=== PATIENT | female | born 1950 | race Caucasian/White ===

== ENCOUNTER 2019-07-31 17:50 | Emergency (ER) | payer MEDICARE, SELFPAY ==
[2019-07-31 17:55] VITALS: BP 139/79; PULSE 88; RESP 18; TEMP 36.7; O2SAT 97; BMI 32.9
--- NOTE | 2019-07-31 18:11 | W.ED.NAVMDI ---
HPI - Nausea/Vomiting/Diarrhea General: Chief complaint: Abdominal Pain Stated complaint: n/v/d, weakness, pain everywhere, fever Time Seen by Provider: 07/31/19 18:04 Source: patient Mode of arrival: ambulatory Limitations: no limitations History of Present Illness: HPI Narrative: Patient is a 68-year-old female who presents to ED today with a complaint of nausea, vomiting, diarrhea that began around 3-4 AM this morning. Patient tells me she felt extremely fatigued around 7 PM so she went to bed but woke up in the middle of the night having diarrhea. She reports approximately 15-20 very watery stools since onset. She states vomiting began this afternoon and has had 3-4 total episodes. She denies hematochezia, melanotic stools, or hematemesis. She does not report much abdominal pain at this time. She does report a headache. She does have a history of migraines however states this pain does not feel similar. Denies urinary symptoms. No fevers. PMH is significant for elevated triglycerides, hypothyroidism, migraine headaches. MD elicited complaint: nausea, vomiting, diarrhea and other (headache, weakness) Associated nausea: Yes Associated symtoms: Reports headache(s) and nausea; Denies change in vision, chest pain, dizziness, dysuria, fatigue, malaise, palpitations or syncope Review of Systems Const: Denies: fever(s), chills, body aches, change in appetite, change in weight, fatigue or malaise Eyes: Denies: change in vision or blurry vision Card: Denies: chest pain, palpitations, irregular heart rhythm, lightheadedness, syncope or dyspnea on exertion Resp: Denies: dyspnea, productive cough or pain on inspiration GI: Reports: nausea, vomiting and diarrhea; Denies: abdominal pain, hematemesis, coffee ground emesis, heartburn, pain on defecation, hematochezia, melena or white/light colored stool : Denies: flank pain, difficulty voiding, dysuria, urinary frequency, urinary urgency or urinary hesitancy Musc: Denies: neck pain, back pain or joint pain Skin/Breast: Denies: rash Neuro: Reports: headache(s); Denies: numbness in extremities, weakness in extremities, sensory changes, lack of coordination or dizziness PFSH ED PFSH: Social History Smoking and tobacco status: never smoked Physical Exam Const: COMMON NORMALS: no acute distress, average body habitus, patient oriented x3, no limitations, healthy appearing, alert and well nourished ORIENTATION/CONSCIOUSNESS: Yes oriented to person, Yes oriented to place and Yes oriented to time HENMT: COMMON NORMALS: normocephalic and atraumatic HEAD & SCALP: normal to inspection, normocephalic and atraumatic Resp: COMMON NORMALS: normal respiratory effort and clear to auscultation bilaterally AUSCULTATION: clear to auscultation bilaterally Cardio: COMMON NORMALS: regular rate and regular rhythm RATE: regular rate RHYTHM: regular rhythm GI: COMMON NORMALS: Normal to inspection, nondistended, normoactive bowel sounds present, Soft to palpation, No hepatosplenomegaly present and no masses AUSCULTATION: Yes normoactive bowel sounds PALPATION: Yes Soft to palpation, Yes Tenderness to palpation present (GI) (throughout abdomen) and Yes No hepatosplenomegaly present : COMMON NORMALS: Yes no CVA tenderness BLADDER/KIDNEY EXAM: Yes no CVA tenderness Back/Pelvis: COMMON NORMALS: no CVA tenderness Extremity: COMMON NORMALS: normal to inspection Neuro: LATOYA COMA SCALE: document GCS findings Latoya coma scale eye opening: Spontaneous Latoya coma scale verbal response: Orientated Latoya coma scale motor response: Obey commands Latoya coma scale total score: 15 COMMON NORMALS: patient oriented x3, CN's II-XII intact bilaterally, moves all extremities, no focal motor deficits and no sensory deficits noted SENSORIUM/ORIENTATION: Yes alert, Yes oriented to person, Yes oriented to place and Yes oriented to time Skin: COMMON NORMALS: no rashes or lesions noted GENERAL SKIN EXAM: no rashes or lesions noted Course Vital Signs: Vital signs: Vital Signs Temperature 98.1 F 07/31/19 17:55 Pulse Rate 88 07/31/19 19:31 Respiratory Rate 16 07/31/19 19:31 Blood Pressure 119/67 07/31/19 19:31 Pulse Oximetry 99 07/31/19 19:31 MDM - Nausea/Vomiting/Diarrhea MDM Narrative: Medical decision making narrative: pt feels much better here after meds/fluids; she has not had any episodes of vomiting or diarrhea-wasn't able to provide stool sample; labs are non-concerning; vitals stable; CT scan showing incidental finding of gastric wall thickening/narrowed lumen-patient made aware of these findingds and we will have case management set her up with general surgery for further evaluation; return to ED precautions given Lab Data: Labs: Lab Results 07/31/19 07/31/19 07/31/19 Range/Units 18:29 18:29 18:54 WBC 7.4 (4.0-10.0) 10^3/ uL RBC 4.83 (4.1-5.3) 10^6/u L Hgb 14.4 (11.5-15.3) g/dL Hct 45.7 (37.0-47.0) % MCV 94.6 (81-99) fL MCH 29.8 (28.0-34.0) pg MCHC 31.5 (30.0-36.0) g/dL RDW 14.2 (12.1-15.1) % Plt Count 312 (130-400) 10^3/c mm MPV 10.2 (7.4-10.4) fL Neut % (Auto) 76.4 % Lymph % (Auto) 15.5 % [place] % (Auto) 6.6 % Eos % (Auto) 0.5 % Baso % (Auto) 0.7 % Neut # (Auto) 5.7 (1.8-7.7) 10^3/u L Lymph # (Auto) 1.2 (0.8-4.8) 10^3/u L [place] # (Auto) 0.5 (0.2-0.9) 10^3/u L Eos # (Auto) 0.0 (0.0-0.8) 10^3/u L Baso # (Auto) 0.1 (0.0-0.1) 10^3/u L Nucleated RBC % (a uto) 0 % Nucleated RBCs # 0.0 /100WBC Sodium 138 (136-145) mmol/L Potassium 3.7 (3.5-5.1) mmol/L Chloride 105 (98-107) mmol/L Carbon Dioxide 18 L (22-29) mmol/L Anion Gap 18.7 (5-19) BUN 14 (8-23) mg/dL Creatinine 0.8 (0.5-0.9) mg/dL GFR Calculation 71.8 L (90-130) mL/min Glucose 124 H (65-115) mg/dL Calculated Osmolal ity 284 L (285-295) mOsm/k g Calcium 9.1 (8.5-10.5) mg/dL Total Bilirubin 0.4 (0.15-1.2) mg/dL AST 24 (0-32) U/L ALT 17 (0-33) U/L Alkaline Phosphata se 68 (35-105) IU/L Total Protein 7.2 (6.6-8.7) g/dL Albumin 4.3 (3.5-5.2) g/dL Globulin 2.9 (1.3-4.6) g/dL Lipase 45 (13-60) U/L Urine Color Yellow (Yellow) Urine Appearance Clear (CLEAR) Urine pH 5 (5-7) Ur Specific Gravit y 1.025 (1.005-1.030) Urine Protein Neg (Negative) Urine Glucose (UA) Norm (Normal) Urine Ketones Negative (Negative) Urine Blood Neg (Negative) Urine Nitrate Negative (Negative) Urine Bilirubin Neg (NEGATIVE) Urine Urobilinogen Neg (Negative) mg/dL Ur Leukocyte Chelsea ase Negative (Negative) Imaging Data^: CT Abd/Pel: Radiologist's impression: [place] [address] CT Scan Report Signed Patient: Clarisse Wise Unit #: [id number] : 1950 Age/Sex: 68 / F ADM Date: 07/31/19 Loc: ER Room/Bed: Attending Dr: Ordering Provider/Ordering MD: Angelique Roberts Date of Service: 07/31/19 Procedure(s): CT abdomen pelvis w con* [id number] Accession Number(s): [id number] Report Number: [id number] PROCEDURE INFORMATION: Exam: CT Abdomen And Pelvis With Contrast Exam date and time: 07/31/2019 6:56 PM Age: 68 years old Clinical indication: Nausea and vomiting and other: Diarrhea; Abdominal pain; Localized; Lower; Prior surgery; Surgery type: Hyst, gb, appy; Additional info: Abdominal pain, n/v/d TECHNIQUE: Imaging protocol: Computed tomography of the abdomen and pelvis with intravenous contrast. Radiation optimization: All CT scans at this facility use at least one of these dose optimization techniques: automated exposure control; mA and/or kV adjustment per patient size (includes targeted exams where dose is matched to clinical indication); or iterative reconstruction. Contrast material: OMNI 300; Contrast volume: 95 ml; Contrast route: INTRAVENOUS (IV); COMPARISON: No relevant prior studies available. RADIATION DOSE METRICS: Total DLP (mGy-cm): 1065.73 FINDINGS: Liver: There is a diffuse decrease in hepatic parenchymal density, consistent with fatty infiltration. Gallbladder and bile ducts: There has been a cholecystectomy. Pancreas: Normal. No ductal dilation. Spleen: The spleen is normal. An accessory splenule is present. Adrenals: Normal. No mass. Kidneys and ureters: There is no evidence of hydronephrosis. There is no evidence of renal calcifications. Stomach and bowel: Moderate diverticulosis is present in the distal colon. There is no evidence of colitis/diverticulitis. The stomach is moderately distended with fluid. The distal wall of the stomach has a focally narrowed appearance with marked wall thickening. Distal and proximal to this, the stomach wall is normal in appearance. This focal narrowing of the lumen could reflect transient peristalsis or could indicate a gastric mass constricting the lumen of the stomach best seen on image 20-26. The duodenum is unremarkable. No thickened or dilated loops of small bowel. No bowel obstruction is identified. Appendix: The history indicates prior appendectomy but there is a tubular structure with an appearance typical of an appendix. This could be a appendix stump or Meckel's diverticulum image 53. Intraperitoneal space: Unremarkable. No free air. No significant fluid collection. Vasculature: Unremarkable.No abdominal aortic aneurysm. Lymph nodes: Haziness of the mesenteric fat with a few subcentimeter lymph nodes compatible with mild panniculitis. There is no pathologic adenopathy. Bladder: The bladder is decompressed. Reproductive: Unremarkable as visualized. Bones/joints: Unremarkable. No acute fracture. Soft tissues: There is a tiny fat filled umbilical hernia. CT/CT abdomen pelvis w con* [id number] IMPRESSION: 1. Very prominent focal area of wall thickening with subsequent narrowing of the lumen of the stomach. This could reflect an incidental gastric mass versus peristalsis. The remainder of the stomach is unremarkable. Further evaluation such is endoscopy is recommended. 2. No additional acute abnormality. No ileus or obstruction. No fluid collection. Probable mild panniculitis is noted. 3. Postoperative hysterectomy and cholecystectomy. The history indicates prior appendectomy but there is a tubular structure posterior to the cecum the has characteristics of an appendix or possibly may reflect a Meckel's diverticulum that is not inflamed. Radiation Dose CTDIVOL = (mGy): DLP = 1065.73 (mGy-cm) Dictated By: Alyssa Orozco Signed By: Alyssa Orozco Signed Date/Time: 07/31/192001 DD/ 00 Discharge Plan Discharge Patient Disposition: Home, Self-Care Clinical Impression: Gastroenteritis Condition: Stable Prescriptions: New Zofran 4 mg tablet 4 mg PO Q6H PRN (Reason: nausea and vomiting) Qty: 14 RF: 0 No Action vitamin E 200 unit Capsule 200 unit PO DAILY RF: 0 meloxicam 15 mg tablet 15 mg PO DAILY RF: 0 estradiol 1 mg tablet 1 mg PO DAILY RF: 0 Euthyrox 50 mcg tablet 50 mcg PO DAILY RF: 0 levothyroxine 50 mcg tablet 50 mcg PO DAILY RF: 0 vitamin B complex Tablet 1 tab PO DAILY RF: 0 montelukast 10 mg tablet 10 mg PO DAILY RF: 0 Soothe (bismuth subsalicylate) 262 mg Tablet 2 tab PO QID RF: 0 oxybutynin chloride 5 mg tablet 5 mg PO TID RF: 0 sertraline 50 mg tablet 50 mg PO DAILY RF: 0 topiramate 50 mg tablet 50 mg PO DAILY RF: 0 fenofibrate nanocrystallized 145 mg tablet 145 mg PO DAILY RF: 0 Discharge Orders: Discharge Order (Routine); Ordered 07/31/19 Ordered By: Angelique Roberts Activity Restrictions/Additional Instructions: As discussed on your CT scan they found an incidental finding of stomach wall thickening and narrowing that could represent a gastric mass versus peristalsis (normal contractions of your digestive system). Case management should contact you to set you up with general surgery for further evaluation. Please return to the emergency department for worsening or severe abdominal pain, continued episodes of vomiting or diarrhea, blood in your vomit or diarrhea, fevers, or any other concerns you may have. Coding Level of Care Code ED Crm Specialist for [facility] Fwd Exam Comprehensive
[2019-07-31 18:36] VITALS: O2SAT 92
[2019-07-31 18:37] VITALS: RESP 15
[2019-07-31 18:37] LABS: Basophils # 0.1 10^3/uL (0.0-0.1); Basophils % 0.7 %; Eosinophils % 0.5 %; Hematocrit 45.7 % (37.0-47.0); Hemoglobin 14.4 g/dL (11.5-15.3); Lymphocytes # 1.2 10^3/uL (0.8-4.8); Lymphocytes % 15.5 %; Mean Corpuscular HGB Conc 31.5 g/dL (30.0-36.0); Mean Corpuscular Hemoglobin 29.8 pg (28.0-34.0); Mean Corpuscular Volume 94.6 fL (81-99); Mean Platelet Volume 10.2 fL (7.4-10.4); Monocytes # 0.5 10^3/uL (0.2-0.9); Monocytes % 6.6 %; Neutrophils # 5.7 10^3/uL (1.8-7.7); Neutrophils % 76.4 %; Nucleated Red Blood Cells % 0 %; Platelet Count 312 10^3/cmm (130-400); Red Blood Count 4.83 10^6/uL (4.1-5.3); Red Cell Distribution Width 14.2 % (12.1-15.1); White Blood Count 7.4 10^3/uL (4.0-10.0)
[2019-07-31] MEDS: morphine 4 mg/mL SDV 1 mL IVP (18:37)
[2019-07-31] MEDS: ondansetron 2 mg/ML SDV 2 mL 4 MG IVP (18:37)
[2019-07-31] MEDS: sodium chloride 0.9% 1,000 ML 999 ML IV (18:37)
[2019-07-31 18:52] LABS: Alanine Aminotransferase 17 U/L (0-33); Albumin Level 4.3 g/dL (3.5-5.2); Alkaline Phosphatase 68 IU/L (35-105); Anion Gap 18.7 (5-19); Aspartate Amino Transferase 24 U/L (0-32); Blood Urea Nitrogen 14 mg/dL (8-23); Calcium 9.1 mg/dL (8.5-10.5); Carbon Dioxide 18 mmol/L (22-29); Chloride 105 mmol/L (98-107); Creatinine Clr Calc Pharmacy 68.4898; Globulin 2.9 g/dL (1.3-4.6); Glomerular Filtration Rate 71.8 mL/min (90-130); Glucose 124 mg/dL (65-115); Lipase 45 U/L (13-60); Osmolality Calculated 284 mOsm/kg (285-295); Potassium 3.7 mmol/L (3.5-5.1); Sodium 138 mmol/L (136-145); Total Bilirubin 0.4 mg/dL (0.15-1.2); Total Protein 7.2 g/dL (6.6-8.7)
[2019-07-31 19:02] LABS: Add Urine Microscopic? NO
[2019-07-31] MEDS: iohexol 300 mg/mL 100 mL Btl IV (19:06)
[2019-07-31 19:28] LABS: Bilirubin Urine Neg (NEGATIVE); Blood Urine Neg (Negative); Glucose Urine UA Norm (Normal); Ketones Urine Negative (Negative); Leukocyte Esterase Urine Negative (Negative); Nitrate Urine Negative (Negative); Protein Urine Neg (Negative); Specific Gravity, Urine 1.025 (1.005-1.030); Urine Appearance Clear (CLEAR); Urine Color Yellow (Yellow); Urobilinogen Urine Neg (Negative); pH Urine 5 (5-7)
[2019-07-31 19:31] VITALS: BP 119/67; PULSE 88; RESP 16; O2SAT 99
[2019-07-31 20:24] VITALS: BP 116/64; PULSE 87; RESP 18; O2SAT 96
--- NOTE | 2019-08-01 11:36 | DCPLANNER ---
manager gaming had message to schedule a follow up appointment for patient with general surgery. manager gaming called [facility], spoke with Karmen, gave clinic patients information. manager gaming was told that patients information would be printed and reviewed. Clinic will call patient with appointment information.
--- NOTE | 2019-08-03 11:46 | DCPLANNER ---
Addendum entered by Brianda Ramirez 08/06/19 08:33: Ludmila from [facility] informed case making machine operator that patient wants to go to [facility] to be seen. Original Note: comsec manager called [facility] to confirm if a follow up appointment had been scheduled for patient. comsec manager was told that clinic called patient to schedule a follow up appointment for patient, was unable to speak with patient and a voicemail was left for patient to return clinics phone call to schedule appointment.
== END 2019-07-31 20:25 | disposition home or self-care (01) ==
PROVIDERS: Emergency Provider Physician Assistant
DX: K52.9 Noninfective gastroenteritis and colitis, unspecified (principal)
CPT/HCPCS: 12345; 36415; 74177; 80053; 81003; 83690; 85025; 96361; 96374; 96375; 99282; 99283; A9270; J2270; J2405; J7030; Q9967